=== PATIENT | female | born 1950 | race Caucasian/White ===

== ENCOUNTER 2018-03-25 16:20 | Emergency (ER) | payer OTHER ==
[2018-03-25] MEDS ORDERED: LIDOCAINE 1% (MDV) 10 ML INJ INFIL (17:04)
[2018-03-25] MEDS ORDERED: CEFTRIAXONE 1 GM INJ IM (17:30)
[2018-03-25] MEDS: traMADol 50 MG TAB PO (17:36)
== END 2018-03-25 18:40 | disposition home or self-care (01) ==
LOC: FTE 16:20
DX: L03.116 Cellulitis of left lower limb (principal); I10 Essential (primary) hypertension; Z79.82 Long term (current) use of aspirin
CPT/HCPCS: 93971; 99284

== ENCOUNTER 2018-04-01 16:16 | Emergency (ER) | payer OTHER ==
[2018-04-01] MEDS: predniSONE 20 MG TAB PO (17:18)
[2018-04-01] MEDS: CLINDAMYCIN 300 MG INJ IM (17:25)
== END 2018-04-01 18:05 | disposition home or self-care (01) ==
LOC: FTE 16:16
DX: I80.02 Phlebitis and thrombophlebitis of superficial vessels of left lower extremity (principal); I10 Essential (primary) hypertension; E11.9 Type 2 diabetes mellitus without complications; Z79.82 Long term (current) use of aspirin
CPT/HCPCS: 96372; 99284-25